=== PATIENT | female | born 1960 | race Caucasian/White ===

== ENCOUNTER → 2016-08-08 | Outpatient (CLI) | payer OTHER ==
[~2016-08-08] MED LIST: ADVAIR 5001 DISK W/D PO; ALBUTEROL17 GM INH; ALBUTEROL2.5 MG/0.5 NEB; AZITHROMYCIN500 MG PO; AZMACORT; BENZONATATE PO; BREO ELLIPTA 21 EACH; BREO ELLIPTA 21 EACH INH; CALCIUM + D 6001 TA1 PO; CALCIUM 600 + D1 TAB PO; CALCIUM 600 +1 EAC2 PO; CALCIUM 600 +1 EAC6 PO; CLARITIN10 M2 PO; CLARITIN10 MG PO; CYMBALTA30 MG PO; DULOXETINE HCL60 M1 PO; DULOXETINE HCL60 MG PO; DUONEB 2.5-0.5 M3 ML NEB; EPIPEN0.3 MG/0.1 IM; FLONASE16 GM; FLOVENT DI50 MCG/DIS INH; GABAPENTIN300 MG PO; GABAPENTIN600 MG PO; GUAIFENESIN-DM S5 ML PO; LEVAQUIN750 M1 PO; LISINOPRIL20 MG PO; MONTELUKAST SOD10 MG PO; NEURONTIN600 MG PO; OMNICEF300 M1 PO; OMNICEF300 MG PO; OXYBUTYNIN10 MG/BOTT PO; PREDNISONE PO; PREDNISONE1 MG; PREDNISONE10 MG PO; PREDNISONE10 MG/DOSE PO; PRILOSEC PO; PRILOSEC20 MG PO; PROVENTIL0.83 MG/ML INH; PULMICORT0.5 MG/2 M INH; ROBITUSSIN NIG118 ML PO; SINGULAIR PO; SPIRIVA18 MCG INH; STERAPRED5 MG/DOSE1 PO; SYMBICORT INH; TRIAMCINOLONE; VITAMIN D 22000 UNIT PO; VITAMIN D50000 UNIT PO
[2016-08-08 13:39] LABS: BASOPHIL# 0.1 X10e3 (0-0.3); EOSINOPHIL# 0.4 X10e3 (0-0.7); EOSINOPHIL% 5.2 % (0.0-7.0); HEMATOCRIT 39.1 % (35.0-45.0); HEMOGLOBIN 12.8 gm/dL (12.0-16.0); LYMPHOCYTE# 1.7 X10e3 (1.0-3.5); LYMPHOCYTE% 22.9 % (17.0-45.0); MEAN CORPUSCULAR HEMOGLOBIN 28.5 PG (28-34); MEAN CORPUSCULAR HGB CONC 32.8 g/dL (30-36); MONOCYTE# 0.4 X10e3 (0-1.0); MONOCYTE% 5.6 % (3.0-12.0); NEUTROPHIL# 4.8 X10e3 (1.5-7.1); NEUTROPHIL% 65.3 % (40-75); PLATELET COUNT 165 X10e3 (140-420); RED BLOOD COUNT 4.49 X10e (3.90-5.30); RED CELL DISTRIBUTION WIDTH 13.9 % (11.0-15.5); WHITE BLOOD COUNT 7.3 X10e3 (4.0-10.5)
[2016-08-08 13:53] LABS: DIFF IND NO
== END | disposition home or self-care (01) ==
LOC: CLAB 12:39
PROVIDERS: Allergy & Immunology
DX: J45.40 Moderate persistent asthma, uncomplicated (principal); J44.9 Chronic obstructive pulmonary disease, unspecified; J30.1 Allergic rhinitis due to pollen; J30.89 Other allergic rhinitis; J45.41 Moderate persistent asthma with (acute) exacerbation; T78.1XXA Other adverse food reactions, not elsewhere classified, initial encounter
CPT/HCPCS: 36415; 82785; 85025

== ENCOUNTER → 2016-09-06 | Outpatient (CLI) | payer OTHER ==
--- NOTE | ~2016-09-06 | MY6 ---
[facility] A Service of [facility] RADIOLOGY TEXT RESULTS PATIENT: CHAS WEBSTER LOCATION: [facility] : 62 UNIT #: [id number] AGE: [address]: Generic Doctor NOT IN SYSTEM SEX: F ORDER DR: [id number] [address] [address] [id number] O MR#: [id number] Acc #: [id number] NAME: CHAS WEBSTER : 1960 SEX: F STUDY DATE/TIME: 09/06/2016 9:44 UNIT: [facility] ROOM: STUDY DESCRIPTION: MY Mammogram Dx Dig [place] Attending Physician: Generic Doctor Not In System Referring Physician: Generic Doctor Not In System Ordering Physician: Physician Non-Staff Primary Care Physician: [facility] IMAGING REPORT This report is preliminary unless electronic signature is present EXAM Bilateral digital diagnostic mammogram INDICATION Follow up right breast calcifications. PROCEDURE CC, MLO views of both breasts and a true lateral view of the left breast. Magnification views of the right breast in the CC and true lateral projections. COMPARISON 07/06/2015. FINDINGS The calcifications in the posterior right breast have almost completely resolved. No new suspicious calcifications are seen. There is scattered fibroglandular density with no dominant mass. IMPRESSION Benign bilateral diagnostic mammogram. Recommend patient continue with yearly screening. Patients over the age of 40 are entered into a reminder system with target due date for the next mammogram. A result letter will also be sent to the patient. BIRADS: 2 Benign finding Dictated by... Ravin Toro M.D. [facility] A [facility] of [facility] RADIOLOGY TEXT RESULTS PATIENT: CHAS WEBSTER LOCATION: [facility] : 62 UNIT #: [id number] AGE: [address]: Randy Doctor NOT IN SYSTEM SEX: F ORDER DR: THIS IS AN ELECTRONICALLY VERIFIED REPORT Ravin Toro M.D. at 09/06/2016 4:51 PM Dana TD: 09/06/2016 11:22 JOB #: [id number] MEDICAL IMAGING REPORT Page 1 of 1 COPY
== END | disposition home or self-care (01) ==
LOC: CMAM 09:04
DX: N64.89 Other specified disorders of breast (principal)
CPT/HCPCS: G0204

== ENCOUNTER → 2017-01-22 | Outpatient (CLI) | payer OTHER ==
--- NOTE | ~2017-01-22 | BD1 ---
[facility] A Service of [facility] RADIOLOGY TEXT RESULTS PATIENT: CHAS WEBSTER LOCATION: [facility] : 62 UNIT #: [id number] AGE: [address]: Wade Terrell MD SEX: F ORDER DR: [id number] [facility] [address] [place], [place] [address] [id number] O MR#: [id number] Acc #: [id number] NAME: CHAS WEBSTER : 1960 SEX: F STUDY DATE/TIME: 01/22/2017 13:38 UNIT: [facility] ROOM: STUDY DESCRIPTION: BD Dexa Bone Dens 1+ Site Attending Physician: Wade Terrell M.D. Referring Physician: Wade Terrell M.D. Ordering Physician: Wade Terrell M.D. Primary Care Physician: Wade Terrell M.D. MEDICAL IMAGING REPORT This report is preliminary unless electronic signature is present EXAM DXA scan, 01/22/2017 HISTORY Status post menopause with no hormone replacement therapy. Osteopenia. Arthritis. Steroid use. FINDINGS Bone mineral density in the lumbar spine from L1-L4 was 1.031 g/cm2 which is 0.1 standard deviations below the mean when compared to the young adult reference population which is within the range of normal. This is 1 standard deviation above the mean when compared to the age-matched population. Compared with 01/03/2015 there has been a decrease in bone mineral density in the lumbar spine of 0.1%. Bone mineral density in the left femoral neck was 0.919 g/cm2 which is 0.6 standard deviations above the mean when compared to the young adult reference population which is within the range of normal. This is 1.7 standard deviations above the mean when compared to the age-matched population. Compared with 01/03/2015 there has been a decrease in bone mineral density in the left hip of 5.1%. IMPRESSION Bone mineral density in the lumbar spine and the left hip within the range of normal. Compared with 01/03/2015 there has been a decrease in bone mineral density in the lumbar spine and the left hip. Dictated by... Shiv Cuevas M.D. THIS IS AN ELECTRONICALLY VERIFIED REPORT Shiv Cuevas M.D. at 01/23/2017 7:28 AM CANDIS/tab [facility]. [facility] A Service of [facility] RADIOLOGY TEXT RESULTS PATIENT: CHAS WEBSTER LOCATION: [facility] : 62 UNIT #: [id number] AGE: [address]: Wade Terrell MD SEX: F ORDER DR: TD: 01/22/2017 15:50 JOB #: [id number] MEDICAL IMAGING REPORT Page 1 of 1 COPY
== END | disposition home or self-care (01) ==
LOC: CWCC 13:00
DX: Z13.820 Encounter for screening for osteoporosis (principal); J45.909 Unspecified asthma, uncomplicated; Z79.52 Long term (current) use of systemic steroids
CPT/HCPCS: 77080